=== PATIENT | female | born 1960 | race American Indian/Alaskan Native ===

== ENCOUNTER 2018-06-24 11:49 | Inpatient (IN) | payer BC ==
[2018-06-24 11:49] VITALS: BMI 27.4
--- NOTE | 2018-06-24 12:25 | ED PDOC ---
HPI: General Adult Time Seen by Provider: 06/24/18 12:13 Chief Complaint (Nursing): Pain, Chronic Chief Complaint (Provider): neck pain, arm pain History Per: Patient History/Exam Limitations: no limitations Current Symptoms Are (Timing): Still Present Severity: Severe Recently: Treated By A Physician Additional Complaint(s): 57yo female c/o severe neck pain radiating to left arm with intermittent weakness of left arm, paresthesias and no improvement with outpatient pain therapies. Past Medical History Reviewed: Historical Data, Nursing Documentation, Vital Signs Vital Signs: Last Vital Signs Temp 97.9 F 06/24/18 11:55 Pulse 93 H 06/24/18 11:55 Resp 19 06/24/18 11:55 BP 170/83 H 06/24/18 11:55 Pulse Ox 100 06/24/18 11:55 - Medical History PMH: Diabetes, HTN Denies: Depression - Surgical History Other surgeries: hernia surgery summer 2017 no complications - Family History Family History: States: Unknown Family Hx - Living Arrangements Living Arrangements: With Family - Home Medications Home Medications: Ambulatory Orders Medication Instructions Recorded Cholecalciferol [Vitamin D 1000 IU] 1 tab PO DAILY 06/24/18 Cyanocobalamin [Vitamin B12 1000 1 tab PO DAILY 06/24/18 mcg Tab] Iron Polysaccharide [Ferrex-150] 1 cap PO DAILY 06/24/18 RX: Glimepiride [Amaryl] 1 mg PO DAILY 06/24/18 Sitagliptin Phos/Metformin HCl 1 tab PO BID 06/24/18 [Janumet 50-1,000 mg Tablet] Valsartan [Diovan] 80 mg PO DAILY 06/24/18 - Allergies Allergies/Adverse Reactions: Allergies Allergy/AdvReac Type Severity Reaction Status Date / Time No Known Allergies Allergy Verified 01/09/12 12:15 Review of Systems Constitutional: Negative for: Fever Cardiovascular: Negative for: Chest Pain, Orthopnea Respiratory: Negative for: Cough, Shortness of Breath Gastrointestinal: Negative for: Nausea, Abdominal Pain Musculoskeletal: Positive for: Neck Pain, Arm Pain, Back Pain. Negative for: Hand Pain, Leg Pain Skin: Negative for: Rash, Lesions Neurological: Positive for: Headache. Negative for: Weakness, Numbness, Dizziness Psych: Negative for: Depression Physical Exam - Reviewed Nursing Documentation Reviewed: Yes Vital Signs Reviewed: Yes - Physical Exam Appears: Positive for: Well, Non-toxic, No Acute Distress Head Exam: Positive for: ATRAUMATIC, NORMAL INSPECTION, NORMOCEPHALIC Skin: Positive for: Normal Color, Warm, DRY Eye Exam: Positive for: EOMI, Normal appearance, PERRL ENT: Positive for: Normal ENT Inspection Neck: Positive for: Decreased ROM, Limited ROM, Pain On Movement Of Neck Cardiovascular/Chest: Positive for: Regular Rate, Rhythm Respiratory: Positive for: CNT, Normal Breath Sounds Pulses-Radial (L): 3+/4+ Pulses-Radial (R): 3+/4+ Gastrointestinal/Abdominal: Positive for: Tenderness Back: Positive for: Muscle Spasm Extremity: Positive for: Normal ROM Neurologic/Psych: Positive for: Alert, Oriented. Negative for: Motor/Sensory Deficits - Laboratory Results Result Diagrams: 06/28/18 05:35 06/28/18 05:35 - ECG O2 Sat by Pulse Oximetry: 100 Medical Decision Making Medical Decision Making: check labs, EKG and initiate analgesia admit dr arthur for neurosurgery eval Disposition - Clinical Impression Clinical Impression: Radiculopathy affecting upper extremity, Neck pain - Patient ED Disposition Is Patient to be Admitted: Yes - Disposition Disposition Time: 13:13 Condition: STABLE - Pt Status Changed To: Hospital Disposition Of: Observation
--- NOTE | 2018-06-24 12:50 | RAD ---
Date of service: 06/24/2018 HISTORY: SOB COMPARISON: No prior. FINDINGS: LUNGS: The lungs are well inflated and clear. PLEURA: No pleural effusions or pneumothorax. CARDIOVASCULAR: The heart is normal in size. No aortic atherosclerotic calcification present. OSSEOUS STRUCTURES: Within normal limits for the patient's age. VISUALIZED UPPER ABDOMEN: Normal. OTHER FINDINGS: None. IMPRESSION: No active pulmonary disease.
[2018-06-24 12:56] LABS: BASO # 0.1 K/uL (0.0-0.2); BASO % 1.5 % (0.0-2.0); EOS # 0.5 K/uL (0.0-0.7); EOS % 10.2 % (0.0-4.0); HEMOGLOBIN 12.4 g/dL (12.0-16.0); LYMPH # 1.7 K/uL (1.0-4.3); LYMPH % 35.9 % (20.0-40.0); MEAN CELL VOLUME 78.9 fl (81.0-99.0); MEAN CORPUSCULAR HGB CONC 31.6 g/dL (33.0-37.0); MEAN PLATELET VOLUME 8.6 fl (7.2-11.7); MONO # 0.3 K/uL (0.0-0.8); MONO % 6.7 % (0.0-10.0); NEUT # 2.2 K/uL (1.8-7.0); NEUT % 45.7 % (50.0-75.0); NRBC % 0.2 % (0.0-0.0); RBC 4.96 Mil/uL (3.80-5.20); RED CELL DISTRIBUTION WIDTH 16.5 % (11.5-14.5); WHITE BLOOD COUNT 4.8 K/uL (4.8-10.8)
[2018-06-24 13:03] LABS: PROTHROMBIN TIME 10.9 Seconds (9.8-13.1)
[2018-06-24 13:05] LABS: PARTIAL THROMBOPLASTIN TIME 30.5 Seconds (25.6-37.1)
--- NOTE | 2018-06-24 13:14 | CP.PCM.HP ---
History of Present Illness - History of Present Illness History of Present Illness: 57 yo F with diabetes and hypertension, admitted for intractable left arm pain/radiculopathy. She describes the pain as 9-10/10, sharp, starting in posterior neck, and radiating down left arm, causing weakness, numbness. and tingling. Pt has had pain for several years, has tried NSAIDs, steroid injections, physical therapy without relief. ROS: neuro symptoms as above; otherwise denies headache, chest pain, shortness of breath, abdominal pain, issues voiding/stooling, leg cramping, leg swelling. Med hx: diabetes type 2, hypertension Surg hx: hernia repair summer 2017 Fam hx: liver cancer (mother) Soc hx: denies tobacco, alcohol, drugs Meds: valsartan, janumet, amaryl Allergies: none Present on Admission - Present on Admission Any Indicators Present on Admission: No Past Patient History - Past Social History Smoking Status: Never Smoked - CARDIAC Hx Hypertension: Yes - ENDOCRINE/METABOLIC Hx Diabetes Mellitus Type 2: Yes - PSYCHIATRIC Hx Depression: No - SURGICAL HISTORY Other/Comment: abdominal hernia Meds Allergies/Adverse Reactions: Allergies Allergy/AdvReac Type Severity Reaction Status Date / Time No Known Allergies Allergy Verified 01/09/12 12:15 Physical Exam - Constitutional Appears: No Acute Distress Additional comments: appears somewhat uncomfortable - Head Exam Head Exam: ATRAUMATIC, NORMAL INSPECTION - Eye Exam Eye Exam: Normal appearance, PERRL - ENT Exam ENT Exam: Mucous Membranes Moist - Neck Exam Neck exam: Negative for: Lymphadenopathy Additional comments: some pain to palpation of posterior neck - Respiratory Exam Respiratory Exam: Clear to Auscultation Bilateral, NORMAL BREATHING PATTERN. absent: Wheezes, Respiratory Distress - Cardiovascular Exam Cardiovascular Exam: REGULAR RHYTHM, +S1, +S2 - GI/Abdominal Exam GI & Abdominal Exam: Normal Bowel Sounds, Soft. absent: Tenderness - Extremities Exam Extremities exam: Positive for: normal inspection. Negative for: calf tenderness Additional comments: LUE limited ROM, strength 4/5, patient uncomfortable moving extremity radial pulses 2+ bilaterally - Back Exam Back exam: NORMAL INSPECTION - Neurological Exam Neurological exam: Alert, Oriented x3 - Skin Skin Exam: Dry, Warm Results - Vital Signs Recent Vital Signs: Last Vital Signs Temp 97.9 F 06/24/18 11:55 Pulse 86 06/24/18 12:55 Resp 19 06/24/18 11:55 BP 170/83 H 06/24/18 11:55 Pulse Ox 100 06/24/18 12:25 - Labs Result Diagrams: 06/24/18 12:45 06/24/18 12:45 Labs: Laboratory Results - last 24 hr 06/24/18 06/24/18 06/24/18 12:45 12:45 13:04 WBC 4.8 RBC 4.96 Hgb 12.4 Hct 39.1 MCV 78.9 L MCH 25.0 L MCHC 31.6 L RDW 16.5 H Plt Count 350 MPV 8.6 Neut % (Auto) 45.7 L Lymph % (Auto) 35.9 Hale % (Auto) 6.7 Eos % (Auto) 10.2 H Baso % (Auto) 1.5 Neut # (Auto) 2.2 Lymph # (Auto) 1.7 Hale # (Auto) 0.3 Eos # (Auto) 0.5 Baso # (Auto) 0.1 PT 10.9 INR 1.0 APTT 30.5 POC Glucose (mg/dL) 237 H Assessment & Plan - Assessment and Plan (Free Text) Assessment: 57 yo F with hypertension and diabetes type 2, with intractable radiculopathy of left upper extremity. Plan: - admit to medsurg - EKG, BMP - neurosurg consult - analgesics - resume janumet and valsartan; hold amaryl for now - accucheks, insulin coverage scale, hypoglycemia protocol - consistent carb diet; npo after midnight - SCDs for now Discussed w/ Dr. Costa.
[2018-06-24 13:16] LABS: BLOOD UREA NITROGEN 9 mg/dl (7-17); CALCIUM 9.5 mg/dL (8.4-10.2); GFR NON-AFRICAN AMERICAN > 60
[2018-06-24 13:17] LABS: ALB/GLOB RATIO 1.2 (1.0-2.1); ALBUMIN 4.5 g/dL (3.5-5.0); ALT/SGPT 24 U/L (9-52); AST/SGOT 62 U/L (14-36)
[2018-06-24] MEDS ORDERED: Glucagon Recombinant 1 mg Inj IM PRN (13:49)
[2018-06-24] MEDS ORDERED: Dextrose 50% SYRINGE Inj (50 ml) IV PRN (13:49)
[2018-06-24] MEDS ORDERED: Pneumococcal 23-Valent Vaccine IM ONE (14:33)
[2018-06-24] MEDS ORDERED: Influenza Vaccine (5 YR UP)/PF 60 MCG/0.5 ML SYR IM ONE (14:36)
[2018-06-24 15:44] LABS: BLOOD UREA NITROGEN 9 mg/dl (7-17); CALCIUM 9.1 mg/dL (8.4-10.2); GFR NON-AFRICAN AMERICAN > 60
[2018-06-24] MEDS: Insulin Lispro (humaLOG) 100 Units/ml Inj SC SCH ×2 (16:34→21:58)
[2018-06-24] MEDS ORDERED: Morphine 4 MG/ML VIAL IVP PRN ×2 (16:49→20:30)
[2018-06-24] MEDS ORDERED: Patient's Own Med (Sitagliptin Phos/Metformin Hcl [Janumet 50-1,000 Mg Tablet] 1 TAB) PO SCH (17:00)
--- NOTE | 2018-06-24 18:55 | CARD ---
APPROVED REPORT Date of service: 06/24/2018 EKG Measurement Heart [id number] ID [id number] <Conclusion> Normal sinus rhythm Normal ECG
--- NOTE | 2018-06-24 18:56 | CARD ---
APPROVED REPORT Date of service: 06/24/2018 EKG Measurement Heart [id number] ID [id number] <Conclusion> Normal sinus rhythm Prolonged QT Abnormal ECG
[2018-06-25] MEDS: Insulin Lispro (humaLOG) 100 Units/ml Inj SC SCH ×4 (07:11→22:03)
--- NOTE | 2018-06-25 07:32 | CP.PCM.CON ---
History of Present Illness - History of Present Illness History of Present Illness: Neurosurgical consult: Dr. Schuler Patient is a 57 y/o LHD female who presents with severe neck pain radiating to the left upper extremity. The patient has had chronic neck pain for many years which has progressively worsened. The patient has tried and failed conservative means with PT and oral medications, as well as epidural injections. She complains of daily pain that hinders her usual activities such as lifting objects. The pain is sharp and radiates to LUE with associated numbness and tingling. She denies any CP/SOB/N/V/D/dizziness/INGRAM/fever/dysuria/melena. Review of Systems - Review of Systems All systems: reviewed and no additional remarkable complaints except Review of Systems: as per HPI Past Patient History - Past Medical History & Family History Past Medical History?: Yes Past Family History: Reviewed and not pertinent Pertinent Family History: as per HPI - Past Social History Smoking Status: Never Smoked Alcohol: None Drugs: Denies - CARDIAC Hx Hypertension: Yes - PULMONARY Hx Respiratory Disorders: No - NEUROLOGICAL Hx Neurological Disorder: No - RENAL Hx Chronic Kidney Disease: No - ENDOCRINE/METABOLIC Hx Diabetes Mellitus Type 2: Yes - HEMATOLOGICAL/ONCOLOGICAL Hx Blood Disorders: No - INTEGUMENTARY Hx Dermatological Problems: No - MUSCULOSKELETAL/RHEUMATOLOGICAL Hx Musculoskeletal Disorders: No Hx Falls: No - GASTROINTESTINAL Hx Gastrointestinal Disorders: No - GENITOURINARY/GYNECOLOGICAL Hx Genitourinary Disorders: No - PSYCHIATRIC Hx Psychophysiologic Disorder: No Hx Depression: No Hx Substance Use: No - SURGICAL HISTORY Other/Comment: abdominal hernia surgery - ANESTHESIA Hx Anesthesia: Yes Hx Anesthesia Reactions: No Meds Allergies/Adverse Reactions: Allergies Allergy/AdvReac Type Severity Reaction Status Date / Time No Known Allergies Allergy Verified 01/09/12 12:15 - Medications Medications: Current Medications Dextrose (Dextrose 50% Inj) 0 ml IV STAT PRN; Protocol PRN Reason: Hypoglycemia Protocol Dextrose (Glutose 15) 0 gm PO ONCE PRN; Protocol PRN Reason: Hypoglycemia Protocol Glucagon (Glucagen Diagnostic Kit) 0 mg IM STAT PRN; Protocol PRN Reason: Hypoglycemia Protocol Insulin Human Lispro (Humalog) 0 units SC ACHS REPLACED BY [facility]; Protocol Last Admin: 06/25/18 07:11 Dose: Not Given Metformin HCl (Glucophage) 1,000 mg PO BID REPLACED BY [facility] Last Admin: 06/24/18 16:36 Dose: 1,000 mg Morphine Sulfate (Morphine) 4 mg IVP Q6 PRN PRN Reason: Pain, severe (8-10) Morphine Sulfate (Morphine) 2 mg IVP Q4 PRN PRN Reason: Pain, moderate (4-7) Last Admin: 06/24/18 20:34 Dose: 2 mg Sitagliptin Phosphate (Januvia) 50 mg PO BID REPLACED BY [facility] Last Admin: 06/24/18 16:36 Dose: 50 mg Valsartan (Diovan) 80 mg PO DAILY REPLACED BY [facility] Physical Exam - Constitutional Appears: Well, No Acute Distress - Head Exam Head Exam: ATRAUMATIC, NORMOCEPHALIC - Eye Exam Eye Exam: EOMI, Normal appearance, PERRL - ENT Exam ENT Exam: Mucous Membranes Moist - Neck Exam Additional comments: Limited ROM due to pain no lesions/masses/deformity sensation and motor intact AXN/MN/UN/RN, diminished to LUE neg clonus - Respiratory Exam Respiratory Exam: NORMAL BREATHING PATTERN - Cardiovascular Exam Cardiovascular Exam: +S1, +S2 - GI/Abdominal Exam GI & Abdominal Exam: Soft. absent: Tenderness - Neurological Exam Neurological exam: Alert, Oriented x3 - Psychiatric Exam Psychiatric exam: Normal Affect, Normal Mood - Skin Skin Exam: Normal Color, Warm Results - Vital Signs Recent Vital Signs: Last Vital Signs Temp 98.4 F 06/25/18 00:43 Pulse 90 06/25/18 00:43 Resp 18 06/25/18 00:43 BP 122/68 06/25/18 00:43 Pulse Ox 97 06/25/18 00:43 - Labs Result Diagrams: 06/24/18 12:45 06/24/18 14:30 Labs: Laboratory Results - last 24 hr 06/24/18 06/24/18 06/24/18 12:45 12:45 12:45 WBC 4.8 RBC 4.96 Hgb 12.4 Hct 39.1 MCV 78.9 L MCH 25.0 L MCHC 31.6 L RDW 16.5 H Plt Count 350 MPV 8.6 Neut % (Auto) 45.7 L Lymph % (Auto) 35.9 Benzie % (Auto) 6.7 Eos % (Auto) 10.2 H Baso % (Auto) 1.5 Neut # (Auto) 2.2 Lymph # (Auto) 1.7 Benzie # (Auto) 0.3 Eos # (Auto) 0.5 Baso # (Auto) 0.1 PT 10.9 INR 1.0 APTT 30.5 Sodium 139 Potassium 5.2 H Chloride 101 Carbon Dioxide 27 Anion Gap 16 BUN 9 Creatinine 0.6 L Est GFR ( Amer) > 60 Est GFR (Non-Af Amer) > 60 POC Glucose (mg/dL) Random Glucose 221 H Calcium 9.5 Total Bilirubin 0.8 AST 62 H ALT 24 Alkaline Phosphatase 84 Total Protein 8.3 H Albumin 4.5 Globulin 3.8 Albumin/Globulin Ratio 1.2 Blood Type Antibody Screen BBK History Checked 06/24/18 06/24/18 06/24/18 13:04 14:30 15:59 WBC RBC Hgb Hct MCV MCH MCHC RDW Plt Count MPV Neut % (Auto) Lymph % (Auto) Benzie % (Auto) Eos % (Auto) Baso % (Auto) Neut # (Auto) Lymph # (Auto) Benzie # (Auto) Eos # (Auto) Baso # (Auto) PT INR APTT Sodium 138 Potassium 3.9 Chloride 103 Carbon Dioxide 25 Anion Gap 14 BUN 9 Creatinine 0.6 L Est GFR ( Amer) > 60 Est GFR (Non-Af Amer) > 60 POC Glucose (mg/dL) 237 H 137 H Random Glucose 198 H Calcium 9.1 Total Bilirubin AST ALT Alkaline Phosphatase Total Protein Albumin Globulin Albumin/Globulin Ratio Blood Type Antibody Screen BBK History Checked 06/24/18 06/25/18 06/25/18 21:54 05:50 06:03 WBC RBC Hgb Hct MCV MCH MCHC RDW Plt Count MPV Neut % (Auto) Lymph % (Auto) Benzie % (Auto) Eos % (Auto) Baso % (Auto) Neut # (Auto) Lymph # (Auto) Benzie # (Auto) Eos # (Auto) Baso # (Auto) PT INR APTT Sodium Potassium Chloride Carbon Dioxide Anion Gap BUN Creatinine Est GFR ( Amer) Est GFR (Non-Af Amer) POC Glucose (mg/dL) 231 H 211 H Random Glucose Calcium Total Bilirubin AST ALT Alkaline Phosphatase Total Protein Albumin Globulin Albumin/Globulin Ratio Blood Type A POSITIVE Antibody Screen Negative BBK History Checked No verified bt Assessment & Plan (1) Cervical spondylosis Assessment and Plan: -OR today for cervical laminotomy -Risks/benefits/alternatives were explained to the patient who understands and agrees to proceed with above procedure -NPO -above d/w Dr. Schuler in agreement Status: Acute
[2018-06-25] MEDS ORDERED: Propofol 10 mg/ml Inj (20 ML) ONE ×2 (07:44→07:47)
[2018-06-25] MEDS ORDERED: Lidocaine 4% (Laryng-O-Jet) Kit MM ONE (07:44)
[2018-06-25] MEDS ORDERED: Rocuronium 10 mg/ml (5 ml) ONE (07:44)
[2018-06-25] MEDS ORDERED: Midazolam 2 MG/2 ML VIAL ONE (07:44)
[2018-06-25] MEDS ORDERED: Succinylcholine 200 mg/10 ml Inj IV ONE (07:47)
[2018-06-25] MEDS ORDERED: ceFAZolin IV 1 gm in Dextrose 2 GM/100 ML BAG IVPB ONE (08:34)
[2018-06-25] MEDS ORDERED: Bacitracin Ointment 30 GM TUBE ONE (08:34)
[2018-06-25] MEDS ORDERED: Lidocaine 2% w Epi 1:100,000 Inj IJ ONE (08:34)
[2018-06-25] MEDS ORDERED: Thrombin Topical 5,000 Int Units Spray Kit ONE (08:35)
[2018-06-25] MEDS ORDERED: Lactated Ringer's 1,000 ML IV ONE (08:55)
[2018-06-25] MEDS ORDERED: Lactated Ringer's 500 ML IV ONE (08:55)
[2018-06-25] MEDS ORDERED: Neostigmine 1:1000 (1 mg/ml) Inj ONE (10:14)
[2018-06-25] MEDS ORDERED: Bupivacaine HCl 0.25% PF (30 ml) Inj ONE (10:27)
[2018-06-25] MEDS ORDERED: Bupivacaine HCl 0.25% PF (30 ml) Inj IJ ONE (10:30)
[2018-06-25] MEDS ORDERED: Oxycodone/Acetaminophen 5/325 mg Tab PO PRN (10:36)
--- NOTE | 2018-06-25 10:44 | PCM.SURG1 ---
Surgeon's Initial Post Op Note - Surgeon's Notes Surgeon: Phil Schuler MD Slab Lifting Engineer: Jim Del Rosario PA-C Type of Anesthesia: General Endo Anesthesia Administered By: Rigo Coates MD Pre-Operative Diagnosis: Cervical spondylosis Operative Findings: see complete operative report Post-Operative Diagnosis: as above Operation Performed: Cervical laminotomy C5-C6 and C6-C7 Specimen/Specimens Removed: none Estimated Blood Loss: EBL {In ML}: 20 Blood Products Given: N/A Drains Used: Heron Adan Post-Op Condition: Good Date of Surgery/Procedure: 06/25/18 Time of Surgery/Procedure: 09:10
[2018-06-25] MEDS ORDERED: Sodium Chloride 0.9% 1,000 ML IV SCH (10:45)
[2018-06-25] MEDS: HYDROmorphone 0.5 mg/0.5 ml ISec IVP PRN ×3 (11:00→12:00)
--- NOTE | 2018-06-25 14:15 | CP.PCM.PN ---
Subjective - Date & Time of Evaluation Date of Evaluation: 06/25/18 Time of Evaluation: 15:00 - Subjective Subjective: Pt seen at bedside; about to participate in physical therapy. Reports she is feeling optimistic. POD #0 after C5-C6, C6-C7 cervical foraminotomy. Has ELEAZAR drain in place. Voided after surgery. Objective - Vital Signs/Intake and Output Vital Signs (last 24 hours): Temp Pulse Resp BP Pulse Ox 97.5 F L 84 18 164/92 H 99 06/25/18 13:00 06/25/18 13:00 06/25/18 13:00 06/25/18 13:00 06/25/18 13:00 Intake and Output: 06/25/18 06/25/18 06:59 18:59 Intake Total 1000 Output Total 20 Balance 980 - Medications Medications: Current Medications Acetaminophen (Tylenol 325mg Tab) 650 mg PO Q4 PRN PRN Reason: Fever 101 degrees fahrenheit Cyclobenzaprine HCl (Flexeril) 10 mg PO Q8 PRN PRN Reason: Muscle spasm Dextrose (Dextrose 50% Inj) 0 ml IV STAT PRN; Protocol PRN Reason: Hypoglycemia Protocol Dextrose (Glutose 15) 0 gm PO ONCE PRN; Protocol PRN Reason: Hypoglycemia Protocol Docusate Sodium (Colace) 100 mg PO BID MARYANN Glucagon (Glucagen Diagnostic Kit) 0 mg IM STAT PRN; Protocol PRN Reason: Hypoglycemia Protocol Cefazolin Sodium/Dextrose (Ancef Iv 1 Gm Duplex) 1 gm in 50 mls @ 50 mls/hr IVPB Q8 MARYANN; Protocol Stop: 06/27/18 17:01 Sodium Chloride (Sodium Chloride 0.9%) 1,000 mls @ 100 mls/hr IV .Q10H [facility] Stop: 06/26/18 10:38 Last Admin: 06/25/18 12:45 Dose: 0 mls Insulin Human Lispro (Humalog) 0 units SC ACHS MARYANN; Protocol Last Admin: 06/25/18 12:00 Dose: Not Given Metformin HCl (Glucophage) 1,000 mg PO BID [facility] Last Admin: 06/25/18 08:43 Dose: Not Given Morphine Sulfate (Morphine) 4 mg IVP Q6 PRN PRN Reason: Pain, severe (8-10) Morphine Sulfate (Morphine) 2 mg IVP Q4 PRN PRN Reason: Pain, moderate (4-7) Last Admin: 06/24/18 20:34 Dose: 2 mg Ondansetron HCl (Zofran Inj) 4 mg IVP ONCE PRN PRN Reason: Nausea/Vomiting Oxycodone/Acetaminophen (Percocet 5/325 Mg Tab) 1 tab PO Q4 PRN PRN Reason: Pain, Mild (1-3) Stop: 06/28/18 10:37 Oxycodone/Acetaminophen (Percocet 5/325 Mg Tab) 2 tab PO Q4 PRN PRN Reason: Pain, moderate (4-7) Stop: 06/28/18 10:37 Sitagliptin Phosphate (Januvia) 50 mg PO BID [facility] Last Admin: 06/25/18 08:43 Dose: Not Given Valsartan (Diovan) 80 mg PO DAILY [facility] Last Admin: 06/25/18 08:43 Dose: Not Given - Labs Labs: 06/24/18 12:45 06/24/18 14:30 PT 10.9 Seconds (9.8-13.1) 06/24/18 12:45 INR 1.0 06/24/18 12:45 APTT 30.5 Seconds (25.6-37.1) 06/24/18 12:45 - Constitutional Appears: No Acute Distress - Head Exam Head Exam: NORMAL INSPECTION - Eye Exam Eye Exam: Normal appearance - Neck Exam Additional comments: ELEAZAR drain posterior neck - Respiratory Exam Respiratory Exam: NORMAL BREATHING PATTERN - Extremities Exam Extremities Exam: Normal Inspection. absent: Pedal Edema Additional comments: moving all extremities, observed walking with PT after seeing pt - Neurological Exam Neurological Exam: Alert, Oriented x3 Assessment and Plan (1) Radiculopathy affecting upper extremity Status: Chronic (2) Hypertension Status: Chronic (3) Diabetes mellitus type 2 in nonobese Status: Chronic - Assessment and Plan (Free Text) Plan: - POD 0 after C5-C6, C6-C7 foraminectomy; neurosurgeon Dr. Schuler - Post-op analgesia as per neurosurg - Post-op antibiotics as per neurosurg (cefazolin 1gm Q8hrs) - Encourage physical therapy - Continue with home meds janumet, valsartan, resume amaryl tomorrow - Accucheks, insulin coverage scale, hypoglycemia protocol - Consistent carb diet - Encourage incentive spirometry - SCDs for now
--- NOTE | 2018-06-25 14:41 | RAD ---
Date of service: 06/25/2018 PROCEDURE: Intraoperative Fluoroscopy. HISTORY: ACD FINDINGS: Fluoroscopic assistance was provided. Fluoroscopy time = 16.4 sec. Radiation dose = 1.96 mGy. Please refer to the operative report.
[2018-06-25] MEDS: ceFAZolin IV 1 gm in Dextrose 1 GM/50 ML BAG IVPB SCH (16:45)
[2018-06-25] MEDS: Morphine 4 MG/ML VIAL IVP PRN (20:26)
[2018-06-26] MEDS: Morphine 4 MG/ML VIAL IVP PRN ×2 (00:37→04:12)
[2018-06-26] MEDS: ceFAZolin IV 1 gm in Dextrose 1 GM/50 ML BAG IVPB SCH ×3 (00:38→16:02)
--- NOTE | 2018-06-26 01:21 | OP ---
PROCEDURE DATE: 06/25/2018 PREOPERATIVE DIAGNOSIS: Cervical spondylosis with myelopathy. POSTOPERATIVE DIAGNOSIS: Cervical spondylosis with myelopathy. PROCEDURE: Left-sided C5-C6, C6-C7 hemilaminotomy, foraminotomy, C5-C7 posterolateral fusion. Fluoroscopy has been used. credit compliance officer has been used. Microscope has been used. SURGEON: Phil Schuler MD ASSOCIATE [employer]: Jim Del Rosario, physician assistant fitness manager. Jim Del Rosario stayed throughout the case from the beginning to the end, helped me performing the surgery. DESCRIPTION OF PROCEDURE: The patient was brought to the operating room, anesthetized with general endotracheal anesthesia. Head was placed in a 3-pin Munoz head of measurement & insights under aseptic precautions. She was placed in a prone position on a Caleb frame. credit compliance officer has been clamped to the bed. Care was taken to protect all the pressure points. Back of the cervical area thoroughly prepped and draped in standard sterile manner after marking the skin incision for cervical laminectomy. After prepping and draping the area, skin has been incised. Bleeding skin has been controlled with bipolar cover inspector. After using a Bovie cover inspector, paraspinal muscles had been detached, attachments of spinous process, lamina on the left side at C5 C7. Identification of the levels had been done with the help of fluoroscopy and hemilaminotomy retractor had been applied under magnification by using a high-speed drill. The later part of the lamina of C6-C7, medial part of the facets of C6-C7 had been done, drilling was continued by skeletonizing the nerve root pedicle of C7. Once thinned bone had been removed, further foraminotomy had been performed. Nerve root had been followed as it exited the foramina and decompression had been achieved. Similarly at C5-C6, foraminotomy and laminotomy has been performed following the nerve root around the pedicle of C6 and decompressing this area as well. After lateral aspect of the facet joints had been decorticated, demineralized bone placed in the area achieving a posterolateral fusion. After that, hemostasis had been achieved. Heron drain placed in the wound and brought out through a separate stabilized condition incision. Muscles and fascia were closed with 1 Vicryl, subcutaneous tissue with 3-0 Vicryl, skin with intradermal 3-0 Vicryl stitches. The patient tolerated the procedure. After the procedure, mobilized to the recovery room in stabilized condition. Phil Schuler MD
[2018-06-26 06:32] LABS: MEAN CELL VOLUME 76.5 fl (81.0-99.0); MEAN CORPUSCULAR HEMOGLOBIN 24.8 pg (27.0-31.0); MEAN CORPUSCULAR HGB CONC 32.4 g/dL (33.0-37.0); RBC 4.42 Mil/uL (3.80-5.20)
[2018-06-26 06:53] LABS: BLOOD UREA NITROGEN 12 mg/dl (7-17); CALCIUM 8.7 mg/dL (8.4-10.2); GFR NON-AFRICAN AMERICAN > 60
[2018-06-26] MEDS: Oxycodone/Acetaminophen 5/325 mg Tab PO PRN ×4 (08:11→22:57)
[2018-06-26] MEDS: Insulin Lispro (humaLOG) 100 Units/ml Inj SC SCH ×4 (08:13→22:49)
--- NOTE | 2018-06-26 10:13 | CP.PCM.PN ---
Subjective - Date & Time of Evaluation Date of Evaluation: 06/26/18 Time of Evaluation: 08:00 - Subjective Subjective: Patient seen and examined at bedside comfortable. Pain well controlled. Tolerated PT well yesterday. Denies CP/SOB/dizziness/INGRAM. Objective - Vital Signs/Intake and Output Vital Signs (last 24 hours): Temp Pulse Resp BP Pulse Ox 98.3 F 73 20 148/79 97 06/26/18 08:37 06/26/18 08:37 06/26/18 08:37 06/26/18 08:37 06/26/18 08:37 Intake and Output: 06/26/18 06/26/18 06:59 18:59 Output Total 26 Balance -26 - Medications Medications: Current Medications Acetaminophen (Tylenol 325mg Tab) 650 mg PO Q4 PRN PRN Reason: Fever 101 degrees fahrenheit Cholecalciferol (Vitamin D) 1,000 intlu PO DAILY [facility] Cyanocobalamin (Vitamin B12 1000 Mcg Tab) 1,000 mcg PO DAILY [facility] Cyclobenzaprine HCl (Flexeril) 10 mg PO Q8 PRN PRN Reason: Muscle spasm Last Admin: 06/26/18 08:13 Dose: 10 mg Dextrose (Dextrose 50% Inj) 0 ml IV STAT PRN; Protocol PRN Reason: Hypoglycemia Protocol Dextrose (Glutose 15) 0 gm PO ONCE PRN; Protocol PRN Reason: Hypoglycemia Protocol Docusate Sodium (Colace) 100 mg PO BID [facility] Last Admin: 06/26/18 08:12 Dose: 100 mg Glipizide (Glucotrol Xl) 2.5 mg PO BRK [facility] Glucagon (Glucagen Diagnostic Kit) 0 mg IM STAT PRN; Protocol PRN Reason: Hypoglycemia Protocol Cefazolin Sodium/Dextrose (Ancef Iv 1 Gm Duplex) 1 gm in 50 mls @ 50 mls/hr IVPB Q8 [facility]; Protocol Stop: 06/27/18 17:01 Last Admin: 06/26/18 08:13 Dose: 50 mls/hr Insulin Human Lispro (Humalog) 0 units SC ACHS [facility]; Protocol Last Admin: 06/26/18 08:13 Dose: 3 unit Losartan Potassium (Cozaar) 50 mg PO DAILY [facility] Last Admin: 06/26/18 08:12 Dose: 50 mg Metformin HCl (Glucophage) 1,000 mg PO BID [facility] Last Admin: 06/26/18 08:12 Dose: 1,000 mg Morphine Sulfate (Morphine) 2 mg IVP Q4 PRN PRN Reason: Pain, severe (8-10) Last Admin: 06/26/18 04:12 Dose: 2 mg Ondansetron HCl (Zofran Inj) 4 mg IVP ONCE PRN PRN Reason: Nausea/Vomiting Oxycodone/Acetaminophen (Percocet 5/325 Mg Tab) 1 tab PO Q4 PRN PRN Reason: Pain, Mild (1-3) Stop: 06/28/18 10:37 Last Admin: 06/25/18 15:43 Dose: 1 tab Oxycodone/Acetaminophen (Percocet 5/325 Mg Tab) 2 tab PO Q4 PRN PRN Reason: Pain, moderate (4-7) Stop: 06/28/18 10:37 Last Admin: 06/26/18 08:11 Dose: 2 tab Sitagliptin Phosphate (Januvia) 50 mg PO BID [facility] Last Admin: 06/26/18 08:12 Dose: 50 mg - Labs Labs: 06/26/18 05:40 06/26/18 05:40 PT 10.9 Seconds (9.8-13.1) 06/24/18 12:45 INR 1.0 06/24/18 12:45 APTT 30.5 Seconds (25.6-37.1) 06/24/18 12:45 - Neck Exam Additional comments: Dressings CDI ELEAZAR drain in place with mild bloody drainage (66cc in 24 hrs) sensation and motor intact MN/UN/RN neg clonus - Neurological Exam Neurological Exam: Alert, Awake, CN II-XII Intact, Oriented x3 Assessment and Plan (1) Cervical spondylosis Assessment & Plan: POD#1 s/p C5-7 laminotomy doing well -pain control -PT/OT -monitor drain output, possible removal tomorrow -above d/w Dr. Schuler in agreement Status: Acute
--- NOTE | 2018-06-26 10:33 | CP.PCM.PN ---
<Tammie Vizcaino - Last Filed: 06/26/18 12:15> Subjective - Date & Time of Evaluation Date of Evaluation: 06/26/18 Time of Evaluation: 08:05 - Subjective Subjective: Pt seen/examined with Dr. Alejo. No acute events overnight. POD #1 s/p C5-C6, C6-C7 cervical foraminotomy. Has ELEAZAR drain in place. Worked with PT yest. Objective - Vital Signs/Intake and Output Vital Signs (last 24 hours): Temp Pulse Resp BP Pulse Ox 98.3 F 73 20 148/79 97 06/26/18 08:37 06/26/18 08:37 06/26/18 08:37 06/26/18 08:37 06/26/18 08:37 Intake and Output: 06/26/18 06/26/18 06:59 18:59 Output Total 26 Balance -26 - Medications Medications: Current Medications Acetaminophen (Tylenol 325mg Tab) 650 mg PO Q4 PRN PRN Reason: Fever 101 degrees fahrenheit Cholecalciferol (Vitamin D) 1,000 intlu PO DAILY [facility] Cyanocobalamin (Vitamin B12 1000 Mcg Tab) 1,000 mcg PO DAILY [facility] Cyclobenzaprine HCl (Flexeril) 10 mg PO Q8 PRN PRN Reason: Muscle spasm Last Admin: 06/26/18 08:13 Dose: 10 mg Dextrose (Dextrose 50% Inj) 0 ml IV STAT PRN; Protocol PRN Reason: Hypoglycemia Protocol Dextrose (Glutose 15) 0 gm PO ONCE PRN; Protocol PRN Reason: Hypoglycemia Protocol Docusate Sodium (Colace) 100 mg PO BID [facility] Last Admin: 06/26/18 08:12 Dose: 100 mg Glipizide (Glucotrol Xl) 2.5 mg PO BRK [facility] Glucagon (Glucagen Diagnostic Kit) 0 mg IM STAT PRN; Protocol PRN Reason: Hypoglycemia Protocol Cefazolin Sodium/Dextrose (Ancef Iv 1 Gm Duplex) 1 gm in 50 mls @ 50 mls/hr IV PB Q8 [facility]; Protocol Stop: 06/27/18 17:01 Last Admin: 06/26/18 08:13 Dose: 50 mls/hr Insulin Human Lispro (Humalog) 0 units SC ACHS [facility]; Protocol Last Admin: 06/26/18 08:13 Dose: 3 unit Losartan Potassium (Cozaar) 50 mg PO DAILY [facility] Last Admin: 06/26/18 08:12 Dose: 50 mg Metformin HCl (Glucophage) 1,000 mg PO BID [facility] Last Admin: 06/26/18 08:12 Dose: 1,000 mg Morphine Sulfate (Morphine) 2 mg IVP Q4 PRN PRN Reason: Pain, severe (8-10) Last Admin: 06/26/18 04:12 Dose: 2 mg Ondansetron HCl (Zofran Inj) 4 mg IVP ONCE PRN PRN Reason: Nausea/Vomiting Oxycodone/Acetaminophen (Percocet 5/325 Mg Tab) 1 tab PO Q4 PRN PRN Reason: Pain, Mild (1-3) Stop: 06/28/18 10:37 Last Admin: 06/25/18 15:43 Dose: 1 tab Oxycodone/Acetaminophen (Percocet 5/325 Mg Tab) 2 tab PO Q4 PRN PRN Reason: Pain, moderate (4-7) Stop: 06/28/18 10:37 Last Admin: 06/26/18 08:11 Dose: 2 tab Sitagliptin Phosphate (Januvia) 50 mg PO BID [facility] Last Admin: 06/26/18 08:12 Dose: 50 mg - Labs Labs: 06/26/18 05:40 06/26/18 05:40 PT 10.9 Seconds (9.8-13.1) 06/24/18 12:45 INR 1.0 06/24/18 12:45 APTT 30.5 Seconds (25.6-37.1) 06/24/18 12:45 - Constitutional Appears: No Acute Distress - Head Exam Head Exam: NORMAL INSPECTION - Eye Exam Eye Exam: Normal appearance - Neck Exam Additional comments: ELEAZAR drain posteriorly - Respiratory Exam Respiratory Exam: Clear to Ausculation Bilateral, NORMAL BREATHING PATTERN. absent: Respiratory Distress - Cardiovascular Exam Cardiovascular Exam: REGULAR RHYTHM - GI/Abdominal Exam GI & Abdominal Exam: Soft - Extremities Exam Extremities Exam: Normal Inspection. absent: Calf Tenderness - Neurological Exam Neurological Exam: Alert, Oriented x3 - Skin Skin Exam: Warm Assessment and Plan (1) Radiculopathy affecting upper extremity Status: Chronic (2) Hypertension Status: Chronic (3) Diabetes mellitus type 2 in nonobese Status: Chronic - Assessment and Plan (Free Text) Plan: - POD 1 after C5-C6, C6-C7 foraminectomy; neurosurgeon Dr. Schuler - As per neurosurg: postop analgesia, post-op antibiotics, possible drain removal tomorrow - Encourage physical therapy/ occupational therapy - Continue with home meds janumet, amaryl, valsartan unavailable from pharmacy, changed to losartan equivalent - Accucheks, insulin coverage scale, hypoglycemia protocol - Consistent carb diet - Encourage incentive spirometry - SCDs - <Harpreet Alejo - Last Filed: 06/27/18 14:22> Objective - Vital Signs/Intake and Output Vital Signs (last 24 hours): Temp Pulse Resp BP Pulse Ox 98.2 F 81 20 111/68 93 L 06/27/18 08:42 06/27/18 08:42 06/27/18 08:42 06/27/18 08:53 06/27/18 08:42 Intake and Output: 06/27/18 06/27/18 11:59 23:59 Output Total 20 Balance -20 - Medications Medications: Current Medications Acetaminophen (Tylenol 325mg Tab) 650 mg PO Q4 PRN PRN Reason: Fever 101 degrees fahrenheit Cholecalciferol (Vitamin D) 1,000 intlu PO DAILY [facility] Last Admin: 06/27/18 08:54 Dose: 1,000 intlu Cyanocobalamin (Vitamin B12 1000 Mcg Tab) 1,000 mcg PO DAILY [facility] Last Admin: 06/27/18 08:54 Dose: 1,000 mcg Cyclobenzaprine HCl (Flexeril) 10 mg PO Q8 PRN PRN Reason: Muscle spasm Last Admin: 06/27/18 03:43 Dose: 10 mg Dextrose (Dextrose 50% Inj) 0 ml IV STAT PRN; Protocol PRN Reason: Hypoglycemia Protocol Dextrose (Glutose 15) 0 gm PO ONCE PRN; Protocol PRN Reason: Hypoglycemia Protocol Docusate Sodium (Colace) 100 mg PO BID [facility] Last Admin: 06/27/18 08:53 Dose: 100 mg Glipizide (Glucotrol Xl) 5 mg PO BRK [facility] Last Admin: 06/27/18 12:24 Dose: 5 mg Glucagon (Glucagen Diagnostic Kit) 0 mg IM STAT PRN; Protocol PRN Reason: Hypoglycemia Protocol Cefazolin Sodium 1 gm/ Sodium (Chloride) 100 mls @ 100 mls/hr IVPB Q8 [facility]; Protocol Last Admin: 06/27/18 08:52 Dose: 100 mls/hr Insulin Human Lispro (Humalog) 0 units SC [facility]; Protocol Last Admin: 06/27/18 12:25 Dose: 4 unit Losartan Potassium (Cozaar) 50 mg PO DAILY [facility] Last Admin: 06/27/18 08:53 Dose: 50 mg Metformin HCl (Glucophage) 1,000 mg PO BID [facility] Last Admin: 06/27/18 08:53 Dose: 1,000 mg Morphine Sulfate (Morphine) 2 mg IVP Q4 PRN PRN Reason: Pain, severe (8-10) Last Admin: 06/26/18 04:12 Dose: 2 mg Ondansetron HCl (Zofran Inj) 4 mg IVP ONCE PRN PRN Reason: Nausea/Vomiting Oxycodone/Acetaminophen (Percocet 5/325 Mg Tab) 1 tab PO Q4 PRN PRN Reason: Pain, Mild (1-3) Stop: 06/28/18 10:37 Last Admin: 06/25/18 15:43 Dose: 1 tab Oxycodone/Acetaminophen (Percocet 5/325 Mg Tab) 2 tab PO Q4 PRN PRN Reason: Pain, moderate (4-7) Stop: 06/28/18 10:37 Last Admin: 06/27/18 10:27 Dose: 2 tab Sitagliptin Phosphate (Januvia) 50 mg PO BID [facility] Last Admin: 06/27/18 08:53 Dose: 50 mg - Labs Labs: 06/27/18 05:45 06/27/18 05:45 PT 10.9 Seconds (9.8-13.1) 06/24/18 12:45 INR 1.0 06/24/18 12:45 APTT 30.5 Seconds (25.6-37.1) 06/24/18 12:45 Assessment and Plan - Assessment and Plan (Free Text) Plan: Patient was personally seen and examined by me in rounds with residents. Available labs and diagnostic data reviewed. Case, Patient's condition and management plan discussed with residents in rounds. Agree with resident's progress note. Plan: As ordered.
[2018-06-26] MEDS: Cholecalciferol 1,000 INTLU TAB PO SCH (12:20)
[2018-06-27] MEDS: ceFAZolin 1 GM in Sodium Chloride 0.9% 100 ML IVPB SCH ×3 (00:17→16:57)
[2018-06-27] MEDS: Oxycodone/Acetaminophen 5/325 mg Tab PO PRN ×3 (03:42→19:30)
[2018-06-27 06:16] LABS: MEAN CELL VOLUME 77.6 fl (81.0-99.0); MEAN CORPUSCULAR HEMOGLOBIN 24.9 pg (27.0-31.0); MEAN CORPUSCULAR HGB CONC 32.1 g/dL (33.0-37.0); RBC 4.4 Mil/uL (3.80-5.20); RED CELL DISTRIBUTION WIDTH 15.9 % (11.5-14.5); WHITE BLOOD COUNT 4.7 K/uL (4.8-10.8)
[2018-06-27 06:36] LABS: BLOOD UREA NITROGEN 13 mg/dl (7-17); CALCIUM 9.2 mg/dL (8.4-10.2); GFR NON-AFRICAN AMERICAN > 60
[2018-06-27] MEDS ORDERED: GlipiZIDE 2.5 mg SR Tab PO SCH (08:00)
[2018-06-27] MEDS: Insulin Lispro (humaLOG) 100 Units/ml Inj SC SCH ×3 (08:54→16:58)
[2018-06-27] MEDS: Cholecalciferol 1,000 INTLU TAB PO SCH (08:54)
--- NOTE | 2018-06-27 09:28 | CP.PCM.PN ---
<Tammie Vizcaino - Last Filed: 06/27/18 10:20> Subjective - Date & Time of Evaluation Date of Evaluation: 06/27/18 Time of Evaluation: 07:15 - Subjective Subjective: Pt seen/examined with Dr. Alejo this am. POD #2 s/p C5-C6, C6-C7 cervical foraminotomy. No acute events overnight; reports some neck pain. ELEAZAR drain with fluid. Pt reports being optimistic. No chest pain or shortness of breath, ambulating and tolerating PT. Objective - Vital Signs/Intake and Output Vital Signs (last 24 hours): Temp Pulse Resp BP Pulse Ox 98.2 F 81 20 111/68 93 L 06/27/18 08:42 06/27/18 08:42 06/27/18 08:42 06/27/18 08:53 06/27/18 08:42 Intake and Output: 06/27/18 06/27/18 06:59 18:59 Output Total 20 Balance -20 - Medications Medications: Current Medications Acetaminophen (Tylenol 325mg Tab) 650 mg PO Q4 PRN PRN Reason: Fever 101 degrees fahrenheit Cholecalciferol (Vitamin D) 1,000 intlu PO DAILY [facility] Last Admin: 06/27/18 08:54 Dose: 1,000 intlu Cyanocobalamin (Vitamin B12 1000 Mcg Tab) 1,000 mcg PO DAILY [facility] Last Admin: 06/27/18 08:54 Dose: 1,000 mcg Cyclobenzaprine HCl (Flexeril) 10 mg PO Q8 PRN PRN Reason: Muscle spasm Last Admin: 06/27/18 03:43 Dose: 10 mg Dextrose (Dextrose 50% Inj) 0 ml IV STAT PRN; Protocol PRN Reason: Hypoglycemia Protocol Dextrose (Glutose 15) 0 gm PO ONCE PRN; Protocol PRN Reason: Hypoglycemia Protocol Docusate Sodium (Colace) 100 mg PO BID [facility] Last Admin: 06/27/18 08:53 Dose: 100 mg Glipizide (Glucotrol Xl) 5 mg PO BRK [facility] Glucagon (Glucagen Diagnostic Kit) 0 mg IM STAT PRN; Protocol PRN Reason: Hypoglycemia Protocol Cefazolin Sodium 1 gm/ Sodium (Chloride) 100 mls @ 100 mls/hr IVPB Q8 [facility]; Protocol Last Admin: 06/27/18 08:52 Dose: 100 mls/hr Insulin Human Lispro (Humalog) 0 units SC ACHS [facility]; Protocol Last Admin: 06/27/18 08:54 Dose: 4 unit Losartan Potassium (Cozaar) 50 mg PO DAILY [facility] Last Admin: 06/27/18 08:53 Dose: 50 mg Metformin HCl (Glucophage) 1,000 mg PO BID [facility] Last Admin: 06/27/18 08:53 Dose: 1,000 mg Morphine Sulfate (Morphine) 2 mg IVP Q4 PRN PRN Reason: Pain, severe (8-10) Last Admin: 06/26/18 04:12 Dose: 2 mg Ondansetron HCl (Zofran Inj) 4 mg IVP ONCE PRN PRN Reason: Nausea/Vomiting Oxycodone/Acetaminophen (Percocet 5/325 Mg Tab) 1 tab PO Q4 PRN PRN Reason: Pain, Mild (1-3) Stop: 06/28/18 10:37 Last Admin: 06/25/18 15:43 Dose: 1 tab Oxycodone/Acetaminophen (Percocet 5/325 Mg Tab) 2 tab PO Q4 PRN PRN Reason: Pain, moderate (4-7) Stop: 06/28/18 10:37 Last Admin: 06/27/18 03:42 Dose: 2 tab Sitagliptin Phosphate (Januvia) 50 mg PO BID [facility] Last Admin: 06/27/18 08:53 Dose: 50 mg - Labs Labs: 06/27/18 05:45 06/27/18 05:45 PT 10.9 Seconds (9.8-13.1) 06/24/18 12:45 INR 1.0 06/24/18 12:45 APTT 30.5 Seconds (25.6-37.1) 06/24/18 12:45 - Constitutional Appears: No Acute Distress - Head Exam Head Exam: NORMAL INSPECTION - Neck Exam Additional comments: Posterior ELEAZAR drain - Respiratory Exam Respiratory Exam: Clear to Ausculation Bilateral, NORMAL BREATHING PATTERN - Cardiovascular Exam Cardiovascular Exam: REGULAR RHYTHM - GI/Abdominal Exam GI & Abdominal Exam: Soft - Extremities Exam Extremities Exam: Normal Inspection. absent: Calf Tenderness - Neurological Exam Neurological Exam: Alert, Oriented x3 - Psychiatric Exam Psychiatric exam: Normal Mood - Skin Skin Exam: Dry, Warm Assessment and Plan (1) Radiculopathy affecting upper extremity Status: Chronic (2) Hypertension Status: Chronic (3) Diabetes mellitus type 2 in nonobese Status: Chronic - Assessment and Plan (Free Text) Plan: - POD 2 after C5-C6, C6-C7 foraminectomy; neurosurgeon Dr. Schuler - As per neurosurg: postop analgesia, post-op antibiotics; spoke with neurosurg PA; drain not ready to be removed today - Encourage physical therapy/ occupational therapy - Continue with home meds janumet, valsartan unavailable from pharmacy, changed to losartan equivalent; amaryl NF- changed to glipizide but blood sugar not at goal; change to 5 mg - Accucheks, insulin coverage scale, hypoglycemia protocol - Consistent carb diet - Encourage incentive spirometry - SCDs <Harpreet Alejo K - Last Filed: 06/27/18 14:20> Objective - Vital Signs/Intake and Output Vital Signs (last 24 hours): Temp Pulse Resp BP Pulse Ox 98.2 F 81 20 111/68 93 L 06/27/18 08:42 06/27/18 08:42 06/27/18 08:42 06/27/18 08:53 06/27/18 08:42 Intake and Output: 06/27/18 06/27/18 11:59 23:59 Output Total 20 Balance -20 - Medications Medications: Current Medications Acetaminophen (Tylenol 325mg Tab) 650 mg PO Q4 PRN PRN Reason: Fever 101 degrees fahrenheit Cholecalciferol (Vitamin D) 1,000 intlu PO DAILY [facility] Last Admin: 06/27/18 08:54 Dose: 1,000 intlu Cyanocobalamin (Vitamin B12 1000 Mcg Tab) 1,000 mcg PO DAILY [facility] Last Admin: 06/27/18 08:54 Dose: 1,000 mcg Cyclobenzaprine HCl (Flexeril) 10 mg PO Q8 PRN PRN Reason: Muscle spasm Last Admin: 06/27/18 03:43 Dose: 10 mg Dextrose (Dextrose 50% Inj) 0 ml IV STAT PRN; Protocol PRN Reason: Hypoglycemia Protocol Dextrose (Glutose 15) 0 gm PO ONCE PRN; Protocol PRN Reason: Hypoglycemia Protocol Docusate Sodium (Colace) 100 mg PO BID [facility] Last Admin: 06/27/18 08:53 Dose: 100 mg Glipizide (Glucotrol Xl) 5 mg PO BRK [facility] Last Admin: 06/27/18 12:24 Dose: 5 mg Glucagon (Glucagen Diagnostic Kit) 0 mg IM STAT PRN; Protocol PRN Reason: Hypoglycemia Protocol Cefazolin Sodium 1 gm/ Sodium (Chloride) 100 mls @ 100 mls/hr IVPB Q8 [facility]; Protocol Last Admin: 06/27/18 08:52 Dose: 100 mls/hr Insulin Human Lispro (Humalog) 0 units SC ACHS [facility]; Protocol Last Admin: 06/27/18 12:25 Dose: 4 unit Losartan Potassium (Cozaar) 50 mg PO DAILY [facility] Last Admin: 06/27/18 08:53 Dose: 50 mg Metformin HCl (Glucophage) 1,000 mg PO BID [facility] Last Admin: 06/27/18 08:53 Dose: 1,000 mg Morphine Sulfate (Morphine) 2 mg IVP Q4 PRN PRN Reason: Pain, severe (8-10) Last Admin: 06/26/18 04:12 Dose: 2 mg Ondansetron HCl (Zofran Inj) 4 mg IVP ONCE PRN PRN Reason: Nausea/Vomiting Oxycodone/Acetaminophen (Percocet 5/325 Mg Tab) 1 tab PO Q4 PRN PRN Reason: Pain, Mild (1-3) Stop: 06/28/18 10:37 Last Admin: 06/25/18 15:43 Dose: 1 tab Oxycodone/Acetaminophen (Percocet 5/325 Mg Tab) 2 tab PO Q4 PRN PRN Reason: Pain, moderate (4-7) Stop: 06/28/18 10:37 Last Admin: 06/27/18 10:27 Dose: 2 tab Sitagliptin Phosphate (Januvia) 50 mg PO BID [facility] Last Admin: 06/27/18 08:53 Dose: 50 mg - Labs Labs: 06/27/18 05:45 06/27/18 05:45 PT 10.9 Seconds (9.8-13.1) 06/24/18 12:45 INR 1.0 06/24/18 12:45 APTT 30.5 Seconds (25.6-37.1) 06/24/18 12:45 Assessment and Plan - Assessment and Plan (Free Text) Plan: Patient was personally seen and examined by me in rounds with residents. Available labs and diagnostic data reviewed. Case, Patient's condition and management plan discussed with residents in rounds. Agree with resident's progress note. Plan: As ordered.
--- NOTE | 2018-06-27 10:49 | CP.PCM.PN ---
Subjective - Date & Time of Evaluation Date of Evaluation: 06/27/18 Time of Evaluation: 08:00 - Subjective Subjective: Patient states the tingling and pain in her left arm has completely resolved post op. Pain is controlled. Objective - Vital Signs/Intake and Output Vital Signs (last 24 hours): Temp Pulse Resp BP Pulse Ox 98.2 F 81 20 111/68 93 L 06/27/18 08:42 06/27/18 08:42 06/27/18 08:42 06/27/18 08:53 06/27/18 08:42 Intake and Output: 06/27/18 06/27/18 06:59 18:59 Output Total 20 Balance -20 - Medications Medications: Current Medications Acetaminophen (Tylenol 325mg Tab) 650 mg PO Q4 PRN PRN Reason: Fever 101 degrees fahrenheit Cholecalciferol (Vitamin D) 1,000 intlu PO DAILY [facility] Last Admin: 06/27/18 08:54 Dose: 1,000 intlu Cyanocobalamin (Vitamin B12 1000 Mcg Tab) 1,000 mcg PO DAILY [facility] Last Admin: 06/27/18 08:54 Dose: 1,000 mcg Cyclobenzaprine HCl (Flexeril) 10 mg PO Q8 PRN PRN Reason: Muscle spasm Last Admin: 06/27/18 03:43 Dose: 10 mg Dextrose (Dextrose 50% Inj) 0 ml IV STAT PRN; Protocol PRN Reason: Hypoglycemia Protocol Dextrose (Glutose 15) 0 gm PO ONCE PRN; Protocol PRN Reason: Hypoglycemia Protocol Docusate Sodium (Colace) 100 mg PO BID [facility] Last Admin: 06/27/18 08:53 Dose: 100 mg Glipizide (Glucotrol Xl) 5 mg PO BRK [facility] Glucagon (Glucagen Diagnostic Kit) 0 mg IM STAT PRN; Protocol PRN Reason: Hypoglycemia Protocol Cefazolin Sodium 1 gm/ Sodium (Chloride) 100 mls @ 100 mls/hr IVPB Q8 [facility]; Protocol Last Admin: 06/27/18 08:52 Dose: 100 mls/hr Insulin Human Lispro (Humalog) 0 units SC ACHS [facility]; Protocol Last Admin: 06/27/18 08:54 Dose: 4 unit Losartan Potassium (Cozaar) 50 mg PO DAILY [facility] Last Admin: 06/27/18 08:53 Dose: 50 mg Metformin HCl (Glucophage) 1,000 mg PO BID [facility] Last Admin: 06/27/18 08:53 Dose: 1,000 mg Morphine Sulfate (Morphine) 2 mg IVP Q4 PRN PRN Reason: Pain, severe (8-10) Last Admin: 06/26/18 04:12 Dose: 2 mg Ondansetron HCl (Zofran Inj) 4 mg IVP ONCE PRN PRN Reason: Nausea/Vomiting Oxycodone/Acetaminophen (Percocet 5/325 Mg Tab) 1 tab PO Q4 PRN PRN Reason: Pain, Mild (1-3) Stop: 06/28/18 10:37 Last Admin: 06/25/18 15:43 Dose: 1 tab Oxycodone/Acetaminophen (Percocet 5/325 Mg Tab) 2 tab PO Q4 PRN PRN Reason: Pain, moderate (4-7) Stop: 06/28/18 10:37 Last Admin: 06/27/18 10:27 Dose: 2 tab Sitagliptin Phosphate (Januvia) 50 mg PO BID [facility] Last Admin: 06/27/18 08:53 Dose: 50 mg - Labs Labs: 06/27/18 05:45 06/27/18 05:45 PT 10.9 Seconds (9.8-13.1) 06/24/18 12:45 INR 1.0 06/24/18 12:45 APTT 30.5 Seconds (25.6-37.1) 06/24/18 12:45 - Neck Exam Additional comments: sensation intact BUE ELEAZAR left intact dressing reinforced, no drainage, no erythema, mild [id number] swelling Assessment and Plan (1) Cervical spondylosis Assessment & Plan: POD#2 20-30 cc last two shift, drain left intact plan for d/c ELEAZAR when drainage subsides pain meds PT?OT d/w Dr. Schuler agrees with above Status: Acute
[2018-06-27] MEDS: GlipiZIDE 5 mg SR Tab PO SCH (12:24)
[2018-06-28] MEDS: ceFAZolin 1 GM in Sodium Chloride 0.9% 100 ML IVPB SCH ×3 (00:02→16:14)
[2018-06-28] MEDS: Oxycodone/Acetaminophen 5/325 mg Tab PO PRN ×4 (00:06→21:21)
[2018-06-28] MEDS: Insulin Lispro (humaLOG) 100 Units/ml Inj SC SCH ×5 (00:07→21:24)
[2018-06-28 07:06] LABS: HEMOGLOBIN 10.7 g/dL (12.0-16.0); MEAN CELL VOLUME 78.9 fl (81.0-99.0); MEAN CORPUSCULAR HEMOGLOBIN 25.3 pg (27.0-31.0); MEAN CORPUSCULAR HGB CONC 32.1 g/dL (33.0-37.0); RBC 4.24 Mil/uL (3.80-5.20); RED CELL DISTRIBUTION WIDTH 15.9 % (11.5-14.5); WHITE BLOOD COUNT 4.5 K/uL (4.8-10.8)
[2018-06-28 07:28] LABS: BLOOD UREA NITROGEN 12 mg/dl (7-17); CALCIUM 9.2 mg/dL (8.4-10.2); GFR NON-AFRICAN AMERICAN > 60
[2018-06-28] MEDS: Cholecalciferol 1,000 INTLU TAB PO SCH (09:44)
[2018-06-28] MEDS: GlipiZIDE 5 mg SR Tab PO SCH (10:38)
--- NOTE | 2018-06-28 12:37 | PN ---
DATE: 06/28/2018 SUBJECTIVE: The patient seen and examined. Interim events noted. The patient remains in regular medical floor status post cervical surgery with drain. Feels okay. Pain is much improved. No chest pain. No shortness of breath. No new complaints. PHYSICAL EXAMINATION GENERAL: The patient is in no acute distress. VITAL SIGNS: Stable. HEART: S1, S2, normal and regular. LUNGS: Good bilateral air exchange. ABDOMEN: Soft, nontender. EXTREMITIES: No edema. No calf swelling. No tenderness. No acute ischemia. 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 DIAGNOSTIC DATA: Available diagnostic data reviewed. ASSESSMENT AND PLAN: The patient still has some bloody drainage from the drainage tube in spine. Overall, the patient is clinically stable. Plan as ordered. Harpreet Aeljo MD
[2018-06-28] MEDS ORDERED: Fluconazole 150 MG TAB PO ONE (13:34)
[2018-06-28] MEDS ORDERED: Oxycodone/Acetaminophen 5/325 mg Tab PO PRN (14:40)
[2018-06-28] MEDS ORDERED: Miconazole 100 MG Vaginal Supp VG SCH (22:00)
[2018-06-29] MEDS: ceFAZolin 1 GM in Sodium Chloride 0.9% 100 ML IVPB SCH ×3 (00:47→17:27)
[2018-06-29] MEDS: Oxycodone/Acetaminophen 5/325 mg Tab PO PRN ×3 (02:29→19:58)
[2018-06-29] MEDS: Insulin Lispro (humaLOG) 100 Units/ml Inj SC SCH ×4 (06:51→22:20)
[2018-06-29 07:48] LABS: HEMOGLOBIN 10.5 g/dL (12.0-16.0); MEAN CELL VOLUME 77.3 fl (81.0-99.0); MEAN CORPUSCULAR HEMOGLOBIN 24.6 pg (27.0-31.0); MEAN CORPUSCULAR HGB CONC 31.8 g/dL (33.0-37.0); RBC 4.29 Mil/uL (3.80-5.20); RED CELL DISTRIBUTION WIDTH 15.8 % (11.5-14.5); WHITE BLOOD COUNT 4.3 K/uL (4.8-10.8)
[2018-06-29] MEDS: GlipiZIDE 5 mg SR Tab PO SCH (08:40)
[2018-06-29 09:04] LABS: ALB/GLOB RATIO 1.2 (1.0-2.1); ALBUMIN 3.7 g/dL (3.5-5.0); ALT/SGPT 29 U/L (9-52); AST/SGOT 20 U/L (14-36); BLOOD UREA NITROGEN 13 mg/dl (7-17); CALCIUM 9.2 mg/dL (8.4-10.2); GFR NON-AFRICAN AMERICAN > 60
[2018-06-29] MEDS: Cholecalciferol 1,000 INTLU TAB PO SCH (10:09)
[2018-06-30] MEDS: ceFAZolin 1 GM in Sodium Chloride 0.9% 100 ML IVPB SCH ×2 (00:09→08:16)
[2018-06-30] MEDS: Insulin Lispro (humaLOG) 100 Units/ml Inj SC SCH (06:32)
[2018-06-30] MEDS: GlipiZIDE 5 mg SR Tab PO SCH (08:17)
[2018-06-30] MEDS: Cholecalciferol 1,000 INTLU TAB PO SCH (08:17)
[2018-06-30 08:25] VITALS: BP 130/81; PULSE 97; RESP 18; TEMP 98; O2SAT 100
[2018-06-30] MEDS: Oxycodone/Acetaminophen 5/325 mg Tab PO PRN (09:54)
== END 2018-06-30 11:40 | disposition home or self-care (01) | DRG 473 ==
LOC: H.ER 11:49 → H.ERHOLD 12:21 → H.MEDSURG1 13:55 → OBSVTOIN 06-26 08:38 → H.MEDSURG1 06-26 22:15
PROVIDERS: ADMIT Family Medicine; ATTEND Family Medicine
PROC: 3E0234Z Introduction of Serum, Toxoid and Vaccine into Muscle, Percutaneous Approach (ICD-10-PCS; 2018-06-24)
PROC: 3E02340 Introduction of Influenza Vaccine into Muscle, Percutaneous Approach (ICD-10-PCS; 2018-06-24)
PROC: 0RG20K1 Fusion of 2 or more Cervical Vertebral Joints with Nonautologous Tissue Substitute, Posterior Approach, Posterior Column, Open Approach (ICD-10-PCS; principal; 2018-06-25 10:00)
DX: M47.12 Other spondylosis with myelopathy, cervical region (principal); E11.9 Type 2 diabetes mellitus without complications; I10 Essential (primary) hypertension; Z23 Encounter for immunization